=== PATIENT | male | born 1935 | race Caucasian/White ===

== ENCOUNTER 2016-06-07 13:03 | Day surgery (SDC) | payer MEDICARE ==
--- NOTE | 2016-06-06 10:47 | PCM.ANEPRE ---
Anesthesia Pre-Op Review Reason for Review: STEMI with stents- less than 6 mos ago Anesthesia Recommendations: Proceed with Procedure Additional Comments 80 yo for excision left thigh lesion by Zenobia Smart. Per surgeon note plan is local with sedation. Patient has hx of ACS in 12/2015 and was taken emergently to [facility] and CLEMENTINE deployed. Within short time frame patient experienced in stent thrombosis and BMS was placed. EF is preserved. Patient has been on dual antiplatelet therapy. Functionally he is doing well and performs at greater than 4 METS in cardiac rehab. Per Dr. Smart's note he spoke with the morning show producer Dr. Anaya and was told patient could stop Plavix and continue ASA for surgery. Plavix has been held since 06/02. Given morning show producer gave recs to hold Plavix, and at the time of this chart review it is being held, would proceed with surgery with DOS eval. Chart Reviewed by: Adelso Gonzalez MD Jun 06, 2016 10:47
[~2016-06-07] VITALS: Ht 167.6 cm; Wt 83.0 kg
[~2016-06-07 13:03] MED LIST: ASPI-973 PO; CHOL10008 PO; CLOP75TA28 PO; LIP40 PO; Lactated Ringer's 1,000 ML IV SCH; METO-272 PO; MULT-1018 PO; OMEG-38 PO; UBID100C16 PO; cranberry
[2016-06-07] MEDS ORDERED: Propofol 10,000 mCg/mL 20 mL Inj ONE (13:04)
[2016-06-07 13:20] VITALS: BP 130/54; PULSE 60; RESP 16; O2SAT 96
[2016-06-07] MEDS ORDERED: Lactated Ringer's 1,000 ML IV ONE (13:31)
[2016-06-07] MEDS ORDERED: Lactated Ringer's 500 ML IV PRN (15:26)
[2016-06-07] MEDS ORDERED: Lactated Ringer's 1,000 ML IV SCH (15:26)
[2016-06-07] MEDS ORDERED: HYDROmorphone 1 mg/mL Inj IVPUSH PRN (15:30)
[2016-06-07] MEDS ORDERED: MetoCLOpramide 5 mg/mL 2 mL Inj IVPUSH PRN (15:30)
[2016-06-07] MEDS ORDERED: Phenylephrine 10,000 mCg/mL Inj IVPUSH PRN (15:30)
[2016-06-07] MEDS ORDERED: Dexamethasone 4 mg/mL Inj IVPUSH PRN (15:30)
[2016-06-07] MEDS ORDERED: EPHEDrine Sulfate 50 mg/mL Inj IVPUSH PRN (15:30)
[2016-06-07] MEDS ORDERED: fentaNYL-PF 50 mCg/mL 2 mL Inj IVPUSH PRN (15:30)
[2016-06-07] MEDS ORDERED: Ondansetron 2 mg/mL 2 mL Inj IVPUSH PRN (15:30)
--- NOTE | 2016-06-07 15:46 | PCM.HPANE ---
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) Medications Blood Thinner: Aspirin, Plavix Hypertension Medication: Yes Home Meds Incl Beta Kwame: Yes Date Beta Kwame Taken: Jun 06, 2016 Time Beta Kwame Taken: 0600 Reported Medications Cholecalciferol (Vitamin D3) (Vitamin D3)1,000 Unit Tab.chew1,000 Unit PO DAILY 06/03/16 Multivitamin (Multi Vitamin Daily)1 Each Tablet1 Each PO DAILY 30 Days Ref 0 06/03/16 Metoprolol Succinate ER 50 Mg Tab.er.24h25 Mg PO DAILY Ref 0 06/03/16 Atorvastatin (Lipitor)40 Mg Ikpqxh00 Mg PO DAILY Ref 0 06/03/16 [place]-3/Dha/Epa/Fish Oil (Fish Oil 1,000 mg Softgel)1 Each Capsule1 Each PO DAILY 06/03/16 [cranberry] No Conflict CheckUnknown Dose DAILY 06/03/16 Ubidecarenone (Coq-10)100 Mg Trysmcv726 Mg PO DAILY 06/03/16 Clopidogrel 75 Mg Efatdm14 Mg PO DAILY Ref 0 06/03/16 Aspirin 81 Mg Oflpdj92 Mg PO DAILY Ref 0 06/03/16 Discontinued Reported Medications [vitamin senior ] No Conflict Check1 Tablet PO DAILY 12/28/15 Ubidecarenone (Coq-10)100 Mg Hjpcrqd748 Mg PO DAILY 12/28/15 [place]-3 Fatty Acids (Fish Oil)500 Mg Capsule1 Capsule PO DAILY 12/28/15 Aspirin 81 Mg Pkzyyk75 Mg PO DAILY 12/28/15 Metoprolol Succinate ER 50 Mg Tab.er.24h25 Mg PO DAILY Ref 0 12/28/15 Atorvastatin (Lipitor)40 Mg Sefypw24 Mg PO DAILY 12/28/15 Omeprazole 20 Mg Capsule.dr20 Mg PO DAILY 12/28/15 Last Time Dose Received Off the plavix x 5 dd History History of ENT Problems?: Yes HEENT History: Positive for:: Cataracts (bilateral) Sinus Problem (seasonal allergies) Denies:: Hearing Problem Denture Type: None Teeth Condition: Within Normal Limits Hx of Heart Problems?: Yes Cardiovascular History: Positive for:: Cardiac Surgery (hx of stemi 12/2015 with CLEMENTINE, BMP) Chest Pain Denies:: Congestive Heart Failure Edema Heart Murmur Hypertension Irregular Heartbeat Pacemaker Thrombophlebitis Other History/Comments No recent CP; Greater than 4 mets (mowed the lawn yesterday) Hx of Respiratory Problem?: No Respiratory History: Denies:: Asthma COPD Emphysema Oxygen Administration Pneumonia Tuberculosis Use of C-PAP Machine Use of Inhalers / NEBS Hx Neurologic Problems?: No Neurological History: Denies:: Alzheimer's Disease CVA Dementia Dizziness Headaches Multiple Sclerosis Parkinson's Disease Seizures Hx of GI Problems?: Yes Hx of Problems?: No Genitourinary History: Denies:: Kidney Stones Urinary Tract Infection Male Hx: Positive for:: Prostate Problems (prostatectomy- surg and radiation) Denies:: Scrotal Mass Testicular Surgery Skin History: Denies:: History Skin Disorders? Pressure Ulcers Hx Musculoskeletal Problems?: No Musculoskeletal History: Denies:: Back Injury Fibromyalgia Joint Replacement Musculoskeletal Trauma Myasthenia Gravis Osteoarthritis Hx of Psycho/Social Problems?: No Psycho Social History: Denies:: Anxiety Hx Depression Hx Surgeries?: Yes (angioplasty,prostectomy,inguinal hernia repair) Hx Any Other Health Problems?: Yes Other History: Positive for:: Cancer (prostate CA in 1999) Denies:: Thyroid Disease History Blood Transfusions: Positive for:: Accept Blood Products? Denies:: Blood Transfuse Reaction Blood Transfusions Hx Diabetes: No Hx Alcohol Use: NoHx Substance Use: No Smoking Status: Unknown if Ever Smoker Have You Smoked inLast 12 mo: No Stop/Bang S-Snoring: Do You Snore Loudly: No T-Tired: feel tired, fatigued: No O-Obsered: Observed not breath: No P-Blood Pressure: treated: Yes B- Body Mass Index > 35 kg/m2: No A- Age over 50: Yes N- Neck Large Circumference: No G- Gender Male: Yes FREDDY Total Score: 3 Risk Assessment Category Category 1A: Patient has history of documented sleep apnea, and HAS NOT received any narcotic, sedative or anesthesia administration during this stay. Category 1B: Patient has history of documented sleep apnea, and HAS received any narcotic , sedative or anesthesia administration during this stay Category 2: Patient has SUSPECTED Obstructive Sleep Apnea, and HAS received any narcotic , sedative or anesthesia administration during this stay. Category 3: Patient has SUSPECTED Obstructive Sleep Apnea and HAS NOT received narcotic, sedative or anesthesia administration during this stay. Category 4: Outpatient in Procedural Areas with known sleep apnea or who screen positive for High Risk via the STOP/BANG questionnaire. Exam Exam Vital Signs Vital Signs Date Time Temp Pulse Resp B/P Pulse Ox O2 Delivery O2 Flow Rate FiO2 06/07/16 13:20 36.6 60 16 130/54 96 Room Air General Appearance: Alert, Oriented X3 HEENT/AIRWAY: Neck Movement (FROM) Lungs: Clear to Auscultation, Clear to Percussion Heart: Exam Unremarkable, Regular Rate/Rhythm Meds/Labs/Diagnostics Admission Meds Current Medications Lactated Ringer's (Lr) 1,000 ml @ ud STK-MED ONCE IV Last administered on 06/07t 13:31; Start 06/07/16 at 13:31; Stop 06/07/16 at 13:32; Status DC Plan Impression Patient chart reviewed, patient interviewed and anesthestic plan with risks, benefits, and alternatives discussed, and informed consent obtained. ASA Physical Status: ASA3 Severe Disease (CAD) Anesthetic Plan: MAC Bene/Risks/Altern/Consents: Yes HP Complete Prior to Induction: Yes Renzo Santos MD Jun 07, 2016 14:45
[2016-06-07] MEDS ORDERED: Bupivacaine 0.5% 50 mL Inj INFILTRATE ONE (16:34)
[2016-06-07] MEDS ORDERED: HYDROcodone-APAP 5-325 mg Tablet PO PRN (17:00)
[2016-06-07 17:05] VITALS: BP 120/48; PULSE 64; RESP 16; O2SAT 99
[2016-06-07 17:20] VITALS: BP 122/50; PULSE 60; RESP 16; O2SAT 99
--- NOTE | 2016-06-07 23:26 | OP ---
[address] [address] OPERATIVE REPORT PATIENT: JARVIS ANDRADE : 1935 MR#: [id number] ADMIT: 06/07/2016 JOB ID: [id number] DATE OF SURGERY: 06/07/2016 PREOPERATIVE DIAGNOSIS(ES): Left medial thigh lesion of uncertain behavior. POSTOPERATIVE DIAGNOSIS(ES): Left medial thigh lesion of uncertain behavior. PROCEDURE: 1. Excision of malignant left thigh lesion of uncertain behavior measuring 5 cm maximum diameter. 2. Layered closure, 8 cm, left thigh lesion. SURGEON: Eloy Smart MD. BUS PERSON: Lukasz Rivera PA-C. INDICATIONS: An 80-year-old man who has had a longstanding left thigh lesion that has slowly increased in size. 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 After discussing options with the patient, it was elected to proceed with excision. FINDINGS: Clear gross margins were achieved with the primary excision. Medial and lateral Burow's triangles were excised and the total length of the wound was 8 cm. The Burow's triangles along with the primary lesion were sent to Pathology. DESCRIPTION OF PROCEDURE: At the beginning and end of the operation, the SCOAP checklist was completed. He received deep sedation with under anesthesia with 1% lidocaine, 0.5% bupivacaine. His left leg was frog-legged and then the medial thigh was prepped with Betadine. The initial incision was designed simply removing the lesion with a clear gross margin. Sutures were then placed into the lesion for margin orientation. It then could be appreciated that the least amount of tension on the wound was to do a transverse closure. Burow's triangles were designed and excised and they were also submitted to Pathology. Hemostasis in the wound was achieved with cautery. The 8 cm wound was then closed in layers with interrupted subcutaneous and deep dermal 3-0 Vicryl and running subcuticular 4-0 Vicryl. Steri-Strips, sterile dressings were applied. The estimated blood loss less than 10 cc. No apparent complications. The final sponge, needle and instrument counts were announced as correct, and the patient was returned to Recovery in stable condition. Critical Assistance provided by ESTEPHANIA Gardiner
--- NOTE | 2016-06-08 07:40 | PCM.ANEP1 ---
Post Anesthesia Phase 1 PACU Phase 1 Assessment Anesthetic Administered: GA Level of Alertness: Awake, talking BILLINGS's with Equal Strength: Yes Pain: No Nausea or Vomiting: No Oxygen Delivery: Simple Mask Lungs: Clear to Auscultation, Clear to Percussion Renzo Santos MD Jun 08, 2016 07:40
== END 2016-06-07 23:59 | disposition home or self-care (01) ==
LOC: SAS 13:03
PROVIDERS: ATTEND Surgery
DX: D04.72 Carcinoma in situ of skin of left lower limb, including hip (principal); I25.10 Atherosclerotic heart disease of native coronary artery without angina pectoris; E78.5 Hyperlipidemia, unspecified; G58.9 Mononeuropathy, unspecified; D50.9 Iron deficiency anemia, unspecified; Z86.14 Personal history of Methicillin resistant Staphylococcus aureus infection; Z79.02 Long term (current) use of antithrombotics/antiplatelets; Z95.5 Presence of coronary angioplasty implant and graft; Z85.46 Personal history of malignant neoplasm of prostate; Z79.82 Long term (current) use of aspirin
CPT/HCPCS: 11606; 12034; J7120